=== PATIENT | female | born 1985 | race American Indian/Alaskan Native ===

== ENCOUNTER 2018-08-30 23:29 | Emergency (ER) | payer MEDICAID, OTHER ==
--- NOTE | 2018-08-31 07:25 | Emergency Department Report ---
ED Female HPI - General Chief complaint: Urogenital-Female Stated complaint: VAGINAL ITCHING AND IRRITATION Time Seen by Provider: 08/31/18 07:19 Source: patient Mode of arrival: Ambulatory Limitations: No Limitations - History of Present Illness Initial comments: 33-year-old female presents to emergency room with complaint of vaginal itching and irritation with thick white discharge. Patient reports she recently finished antibiotic for bacterial vaginosis and now has vaginal irritation and discharge. Patient denies any nausea vomiting no fever no chills no abdomen pain. 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 Currently takes no medications on a daily basis. MD Complaint: vaginal discharge -: week(s) (1) Location: labia Severity scale (0 -10): 0 Consistency: constant Improves with: none Worsens with: none Are you Now?: No Last Menstrual Period: 08/23/18 EDC: 05/30/19 - Related Data Sexually active: Yes Previous Rx's Medication Instructions Recorded Last Taken Type Acetaminophen/Codeine [Tylenol #3] 1 tab PO Q6H PRN #15 tab 10/11/13 Unknown Rx Naproxen Sodium (Nf) [Anaprox DS] 550 mg PO BID #14 tablet 10/11/13 Unknown Rx Fluconazole [Diflucan] 150 mg PO QDAY 2 Days #2 tablet 08/31/18 Unknown Rx Allergies Allergy/AdvReac Type Severity Reaction Status Date / Time Sulfa (Sulfonamide Allergy Vomiting Verified 10/11/13 15:48 Antibiotics) ED Review of Systems ROS: Stated complaint: VAGINAL ITCHING AND IRRITATION Other details as noted in HPI Comment: All other systems reviewed and negative ED Past Medical Hx - Past Medical History Previous Medical History?: No - Surgical History Past Surgical History?: Yes Additional Surgical History: hernia repair 1998, oophrectomy 2005, tubal ligation 2006 - Social History Smoking Status: Never Smoker Substance Use Type: None - Medications Home Medications: Home Medications Medication Instructions Recorded Confirmed Last Taken Type Acetaminophen/Codeine [Tylenol #3] 1 tab PO Q6H PRN #15 tab 10/11/13 Unknown Rx Naproxen Sodium (Nf) [Anaprox DS] 550 mg PO BID #14 tablet 10/11/13 Unknown Rx Fluconazole [Diflucan] 150 mg PO QDAY 2 Days #2 tablet 08/31/18 Unknown Rx ED Physical Exam - General Limitations: No Limitations General appearance: alert, in no apparent distress - Head Head exam: Present: atraumatic, normocephalic - Eye Eye exam: Present: normal appearance - Cardiovascular Cardiovascular Exam: Present: regular rate, normal rhythm. Absent: systolic murmur, diastolic murmur, rubs, gallop - GI/Abdominal GI/Abdominal exam: Present: soft, normal bowel sounds ED Course Vital Signs 08/30/18 23:33 Temperature 97.9 F Pulse Rate 96 H Respiratory 18 Rate Blood Pressure 105/63 O2 Sat by Pulse 100 Oximetry Critical care attestation.: If time is entered above; I have spent that time in minutes in the direct care of this critically ill patient, excluding procedure time. ED Disposition Clinical Impression: Vaginitis Qualifiers: Chronicity: acute Qualified Code(s): N76.0 - Acute vaginitis Disposition: TO HOME OR SELFCARE Is pt being admited?: No Does the pt Need Aspirin: No Condition: Stable Instructions: Vulvovaginal Candidiasis (ED) Additional Instructions: Complete antifungal medication as prescribed. Increase her water intake. Follow-up with [facility]. Prescriptions: Fluconazole [Diflucan] 150 mg PO QDAY 2 Days #2 tablet Referrals: LACEY PRATHER MD [Primary Care Provider] - 3-5 Days
[2018-08-31 07:57] VITALS: BP 100/59
== END 2018-08-31 07:53 | disposition home or self-care (01) ==
LOC: ED 23:29
DX: N76.0 Acute vaginitis (principal); Z98.51 Tubal ligation status; Z79.899 Other long term (current) drug therapy; Z88.2 Allergy status to sulfonamides
CPT/HCPCS: 99282